=== PATIENT | female | born 1955 | race Caucasian/White ===

== ENCOUNTER 2019-10-20 17:57 | Outpatient (RCR) | payer BC, SELFPAY | END 2019-11-19 23:59 | disposition home or self-care (01) | LOC: GPT 17:57 | PROVIDERS: Family Provider Physician Assistant; Visit Provider Orthopaedic Surgery | DX: M54.42 Lumbago with sciatica, left side (principal); G89.29 Other chronic pain | CPT/HCPCS: 97110; 97116; 97140; G0283 ==

== ENCOUNTER 2019-11-20 06:00 | Outpatient (RCR) | payer BC, SELFPAY | END 2019-12-18 23:59 | disposition home or self-care (01) | LOC: GPT 06:00 | PROVIDERS: Family Provider Physician Assistant; Visit Provider Orthopaedic Surgery | DX: G89.29 Other chronic pain (principal); M54.41 Lumbago with sciatica, right side | CPT/HCPCS: 97110 ==

== ENCOUNTER 2020-01-19 06:00 | Outpatient (RCR) | payer BC, SELFPAY | END 2020-02-17 23:59 | disposition home or self-care (01) | LOC: GPT 06:00 | PROVIDERS: Family Provider Physician Assistant; Referring Provider Orthopaedic Surgery; Visit Provider Orthopaedic Surgery | DX: Z47.1 Aftercare following joint replacement surgery (principal); Z96.652 Presence of left artificial knee joint | CPT/HCPCS: 97032; 97110; 97112; 97116; 97161; 97530; G0283 ==

== ENCOUNTER 2020-02-18 06:00 | Outpatient (RCR) | payer BC, SELFPAY | END 2020-03-19 23:59 | disposition home or self-care (01) | LOC: GPT 06:00 | PROVIDERS: Family Provider Physician Assistant; Referring Provider Orthopaedic Surgery; Visit Provider Orthopaedic Surgery | DX: Z47.1 Aftercare following joint replacement surgery (principal); Z96.652 Presence of left artificial knee joint | CPT/HCPCS: 97032; 97110; 97112; 97164; 97530 ==

== ENCOUNTER 2020-05-03 06:00 | Outpatient (RCR) | payer OTHER, SELFPAY | END 2020-05-19 23:59 | disposition home or self-care (01) | LOC: GPT 06:00 | PROVIDERS: PCP Physician Assistant; Referring Provider Orthopaedic Surgery; Visit Provider Orthopaedic Surgery | DX: Z47.1 Aftercare following joint replacement surgery (principal); Z96.651 Presence of right artificial knee joint | CPT/HCPCS: 97110; 97112; 97116; 97161; 97530 ==

== ENCOUNTER 2020-05-20 06:00 | Outpatient (RCR) | payer OTHER, SELFPAY | END 2020-06-19 23:59 | disposition home or self-care (01) | LOC: GPT 06:00 | PROVIDERS: PCP Physician Assistant; Referring Provider Orthopaedic Surgery; Visit Provider Orthopaedic Surgery | DX: Z47.1 Aftercare following joint replacement surgery (principal); Z96.651 Presence of right artificial knee joint | CPT/HCPCS: 97110; 97112; 97116; 97164; 97530 ==